=== PATIENT | female | born 1995 | race Caucasian/White ===

== ENCOUNTER 2020-10-08 18:24 | Emergency (ER) | payer SELFPAY ==
[2020-10-08 19:13] LABS: Bilirubin Negative (Negative); Blood, Urine Moderate (Negative); Glucose, Urine (Dipstick) Negative (Negative); Ketone, Urine 15 mg/dL (Negative); Leukocyte Negative (Negative); Nitrite Negative (Negative); Protein, Urine (Dipstick) Negative (Neg-Trace); Specific Gravity, Urine 1.015 (1.005-1.030); Urobilinogen 0.2 mg/dL (Less than 2)
[2020-10-08 19:14] LABS: Clarity Clear (Clear)
[2020-10-08 19:15] LABS: Pregnancy Test - Urine (BHCG) Negative (Negative); Pregu Control Background? CLEAR/WHITE (CLR/WHITE); Pregu Control Bar Appear? YES (CONTROL BAR); Specific Gravity 1.015 (1.002-1.036)
[2020-10-08 19:19] LABS: Bacteria/HPF None Seen HPF (None Seen); Squamous Epithelial 0-3 HPF (0-3); WBC/HPF 0-3 HPF (0-3)
[2020-10-08] MEDS ORDERED: Ibuprofen 800 MG TAB ONE (19:43)
== END 2020-10-08 19:49 | disposition home or self-care (01) ==
LOC: ERS 18:24
DX: R10.31 Right lower quadrant pain (principal); Z79.899 Other long term (current) drug therapy
CPT/HCPCS: 81003; 81015; 81025; 99284